=== PATIENT | female | born 1960 | race Caucasian/White ===

== ENCOUNTER → 2017-02-03 | Outpatient (CLI) | payer BC ==
--- NOTE | 2017-02-04 18:22 | PCVCIMAG ---
APPROVED REPORT Exam: Stress Echocardiogram Indication: ABN EKG, HLP, SOA, CHEST PAIN, Patient Location: Echo lab Stress Nurse: Sophie Lopez RN Status: routine Ht: 5 ft 3 in HR: 77 bpm BP: 118/80 mmHg Rhythm: NSR Procedure The patient underwent an Exercise Stress Test using the Сергей Protocol. Blood pressure, heart rate, and EKG were monitored. An Echocardiogram was performed by coal gasification technician in four stages in quad fashion. At peak stress, four selected images were obtained and placed side by side with resting images for comparison. Stress Test Details Stress Test: Exercise stress testing was performed using a Сергей protocol. HR Resting HR: 77 bpmMax Heart Rate (APMHR): 164 bpm Max HR Achieved: 144 bpmTarget HR (85% APMHR): 139 bpm % of APMHR: 87 HR response to stress: Normal HR response to stress BP Resting BP: 118/80 mmHg Max BP: 172/80 mmHg ECG Resting ECG: Sinus Rhythm Stress ECG: Sinus Rhythm, NSSTT changes Arrhythmia: None Clinical Reason for Termination: Maximal effort Exercise duration: 9 min 31 sec Exercise capacity: 11.70 METs Overall Exercise Capacity for Age: Normal Pre-Stress Echo The resting Echocardiogram showed normal left ventricular contractility with an estimated Ejection Fraction of about 55-60%. Normal wall motion in all segments on baseline images. Post-Stress Echo The stress Echocardiogram showed normal left ventricular contractility with an estimated Ejection Fraction of about 60-65%. Normal augmentation of wall motion in all segments on post stress images. Conclusion Clinical Response: Non-ischemic Exercise Capacity: Average Stress ECG Response: Equivocal Stress Echo Images: Non-ischemic Other Information Study Quality: Adequate
== END | disposition home or self-care (01) ==
LOC: PCVCIMAG 11:09
PROVIDERS: ATTEND Internal Medicine Cardiovascular Disease
DX: I25.10 Atherosclerotic heart disease of native coronary artery without angina pectoris (principal); R94.31 Abnormal electrocardiogram [ECG] [EKG]; E78.00 Pure hypercholesterolemia, unspecified; Z82.49 Family history of ischemic heart disease and other diseases of the circulatory system
CPT/HCPCS: 93325; 93351

== ENCOUNTER → 2019-03-02 | Outpatient (CLI) | payer BC ==
--- NOTE | 2019-03-02 11:17 | PCVCIMAG ---
APPROVED REPORT Study performed: 03/02/2019 09:35:12 Exam: Stress Echocardiogram Indication: chest pressure, abn ekg, fam hx cad Patient Location: Echo lab Stress Nurse: Fatoumata Bustos RN Status: routine Ht: 5 ft 3 in HR: 71 bpm BP: 162/92 mmHg Rhythm: NSR w/ T Wave abnormality Procedure The patient underwent an Exercise Stress Test using the Сергей Protocol. Blood pressure, heart rate, and EKG were monitored. An Echocardiogram was performed by hyperbaric technician in four stages in quad fashion. At peak stress, four selected images were obtained and placed side by side with resting images for comparison. Stress Test Details Stress Test: Exercise stress testing was performed using a Сергей protocol. HR Resting HR: 71 bpmMax Heart Rate (APMHR): 162 bpm Max HR Achieved: 164 bpmTarget HR (85% APMHR): 137 bpm % of APMHR: 101 Recovery HR: 90 bpm HR response to stress: Normal HR response to stress BP Resting BP: 162/92 mmHg Max BP: 186/80 mmHg Recovery BP: 148/76 mmHg BP response to stress: Normal blood pressure response to stress. ECG Resting ECG: Sinus Rhythm, nonspecific ST-T abnormalities Stress ECG: Sinus Rhythm, nonspecific ST-T abnormalities ST Change: Nondiagnostic resting ST abnormalities Arrhythmia: rate dependent incomplete LBBB Recovery ECG: Sinus Rhythm Recovery ST Change: Normal Recovery Arrhythmia: LBBB that resolved into recovery Clinical Reason for Termination: Maximal effort Stress Symptoms: Dyspnea Exercise duration: 10 min sec Highest Stage Achieved: Stage 4: 4.2 mph at 16% grade. Exercise capacity: 13.3 METs Overall Exercise Capacity for Age: Normal Scale: Active Angina Score: None Pre-Stress Echo The resting Echocardiogram showed normal left ventricular contractility with an estimated Ejection Fraction of about >55%. The resting echocardiogram demonstrated normal wall motion in all wall segments. Post-Stress Echo The stress Echocardiogram showed normal left ventricular contractility with an estimated Ejection Fraction of about 65%. Compared to rest, there were no stress-induced wall motion abnormalities. Clinical No clinical or ECG evidence for ischemia. Conclusion Clinical Response: Non-ischemic Exercise Capacity: Average Stress ECG Response: Non-diagnostic due to baseline T wT wave abnormality Stress Echo Images: Non-ischemic The left ventricle is normal in size and wall thickness in both the rest and stress images. Mild prolapse of anterior mitral valve leaflet with mild regurgitation. Mild tricuspid regurgitation with PAP of 28 mmHg. No aortic regurgitation. Trace pulmonic regurgitation. No valvular stenosis present. Other Information Study Quality: Adequate <Conclusion> The left ventricle is normal in size and wall thickness in both the rest and stress images. Mild prolapse of anterior mitral valve leaflet with mild regurgitation. Mild tricuspid regurgitation with PAP of 28 mmHg. No aortic regurgitation. Trace pulmonic regurgitation. No valvular stenosis present.
== END | disposition home or self-care (01) ==
LOC: PCVCIMAG 09:25
PROVIDERS: ATTEND Internal Medicine Cardiovascular Disease
DX: I08.3 Combined rheumatic disorders of mitral, aortic and tricuspid valves (principal); R94.31 Abnormal electrocardiogram [ECG] [EKG]; R93.1 Abnormal findings on diagnostic imaging of heart and coronary circulation; Z82.49 Family history of ischemic heart disease and other diseases of the circulatory system
CPT/HCPCS: 93325; 93351